=== PATIENT | female | born 1975 | race Caucasian/White ===

== ENCOUNTER 2020-03-21 15:29 | Emergency (ER) | payer BC, MEDICAID ==
[~2020-03-21] VITALS: Ht 154.9 cm; Wt 60.0 kg
[2020-03-21] MEDS ORDERED: LIDOCAINE HCL/PF 1% 10 MG/ML 5ML VIAL IJ ONE (16:00)
[2020-03-21] MEDS ORDERED: BACITRACIN ZINC OINT UDPKT TOP ONE (16:00)
[2020-03-21] MEDS ORDERED: ACETAMINOPHEN 325MG TABLET PO ONE (16:00)
[2020-03-21 16:49] VITALS: BP 102/50
== END 2020-03-21 16:50 | disposition home or self-care (01) ==
LOC: ER 15:29
DX: S61.210A Laceration without foreign body of right index finger without damage to nail, initial encounter (principal); X58.XXXA Exposure to other specified factors, initial encounter; Y93.89 Activity, other specified; Y92.89 Other specified places as the place of occurrence of the external cause; Y99.8 Other external cause status
CPT/HCPCS: 12001; 99283; J3490

== ENCOUNTER 2020-03-23 11:41 | Emergency (ER) | payer BC ==
[~2020-03-23] VITALS: Ht 165.1 cm; Wt 65.0 kg
[2020-03-23 12:14] VITALS: BP 110/64
== END 2020-03-23 12:52 | disposition home or self-care (01) ==
LOC: ER 11:41
DX: Z48.00 Encounter for change or removal of nonsurgical wound dressing (principal)
CPT/HCPCS: 29130; 99283